=== PATIENT | female | born 1975 | race Asian ===

== ENCOUNTER 2017-12-07 08:00 | Inpatient (IN) ==
[2017-12-07] MEDS ORDERED: Famotidine 20 MG/2 ML VIAL IVP PRN (08:39)
[2017-12-07] MEDS ORDERED: Metoclopramide 10 MG/2 ML VIAL IVP PRN (08:39)
[2017-12-07] MEDS ORDERED: Naloxone 0.4 MG/ML INJ IVP PRN (08:39)
[2017-12-07] MEDS ORDERED: Lidocaine 1% 20 ML MDV INFILT PRN (08:39)
[2017-12-07] MEDS ORDERED: Ondansetron 4 MG/2 ML VIAL IVP PRN (08:39)
[2017-12-07 09:24] LABS: Basophils # 0.1 K/mcL (0.0-0.2); Basophils % 0.8 %; Eosinophils # 0.1 K/mcL (0.0-0.6); Eosinophils % 0.9 %; Hematocrit 36.9 % (35.3-44.9); Hemoglobin 12.1 g/dL (11.5-15.4); Immature Granulocytes % 4.1 % (0-4); Lymphocytes # 1.6 K/mcL (0.6-4.6); Mean Corpuscular HGB Conc 32.8 g/dL (31.6-35.5); Mean Corpuscular Hemoglobin 28.7 pg (28.0-33.3); Mean Corpuscular Volume 87.4 fL (83.0-100.0); Mean Platelet Volume 10.1 fL (9.4-12.4); Monocytes # 0.7 K/mcL (0.0-1.3); Monocytes % 8.8 %; Platelet Count 265 K/mcL (140-400); Red Blood Count 4.22 M/mcL (3.82-4.97); Red Cell Distribution Width 15.4 % (11.5-14.5); Segmented Neutrophils % 64.4 %
[2017-12-07 09:49] LABS: Amphetamine Screen,Urine Negative ng/mL (Cutoff=1000); Barbiturate Screen,Urine Negative ng/mL (Cutoff=200); Benzodiazepines Screen,Urine Negative ng/mL (Cutoff=200); Cannabinoid Screen,Urine Negative ng/mL (Cutoff = 50); Cocaine Screen,Urine Negative ng/mL (Cutoff= 300); Opiate Screen,Urine Negative ng/mL (Cutoff=300); Phencyclidine Screen,Urine Negative ng/mL (Cutoff=25)
--- NOTE | 2017-12-07 10:29 | OB/GYN History & Physical ---
Date of Encounter: 12/07/17 Time of Encounter: 10:23 Assessment and Plan (1) 39 weeks gestation of Current visit: Yes Status: Acute Intrauterine Elective induction Rh+ GBS- Admit to L&D for elective IOL Labs per usual Batista bulb and cytotec CEFM Pain management - epidural Anticipate Dr. Sage aware of POC and agrees and is available as needed. (2) Advanced maternal age in multigravida Current visit: Yes Status: Acute Qualifiers: Trimester: third trimester Qualified Code(s): O09.523 - Supervision of elderly multigravida, third trimester (3) Gestational diabetes mellitus (GDM) affecting seventh Current visit: Yes Status: Acute (4) Encounter for elective induction of labor Current visit: Yes Status: Acute History of Present Illness Chief complaint: elective IOL HPI: Ms. Ashley is a 42 year old Prydeinig female with an estimated date of of 12/11/17 at 39 weeks and 3 days gestation dated by early ultrasound. She presents for elective induction of labor. She denies contractions, RIO last , vaginal bleeding and reports positive movement. Her course has been complicated by advanced maternal age and gestational diabetes controlled with metformin. She received care from primarily Dr. Sage. records are available in her chart and have been reviewed. Labs: A+ GBS- HIV- Hep B- T. Palladium- Rubella immune Varicella immune Past Med Surg Social Fam HX - Past Medical History Psychiatric history: no psych history - Past Surgical History Surgical History: no surgical history - Social History Smoking Status: Former smoker Smokeless Tobacco Status: No Alcohol use: none Drug use: none - Family History Father Name: Luis Miguel Johnson Living Status: Still Living Hx Family Cardiac Disorders: No Hx Family Respiratory Disorders: No Hx Family Cancer: No Hx Family GI Disorders: No Hx Family Genitourinary Disorders: No Hx Family Endocrine Disorder: Yes (diabetes) Hx Family Musculoskeletal Disorders: No Hx Family Neuromuscular Disorders: No Hx Family Neurologic Disorders: No Hx Family HEENT Disorders: No Hx Family Autoimmune Disorders: No Hx Family Reproductive Disorders: No Hx Family Psychosocial Disorders: No Hx Family Medical Disorders: No Obstetrical History - Pregnancies : 7 Para: 4 Term: 4 (# 1: 1997, ; # 3 2005, ; # 4: 2010, ; # 5: 2013, ) : 0 Ab's: 2 (# 2: 2000 mab; # 6 2016 mab) Livin Review of System OB All systems PM: reviewed and no additional remarkable complaints except as stated Exam - Constitutional Constitutional: well developed, well nourished, no acute distress, average body habitus - HEENT HEENT: PERRL - Neck Neck exam: full ROM - Lungs Respiratory exam: CTAB - Cardiovascular Cardiovascular exam: RRR, +S1, +S2 - Breasts Breast: bilateral: normal - Abdomen Abdomen: Present: bowel sounds normal, gravid, non tender - Extremities Extremities exam: normal inspection, radial pulses palpable and symmetrical - Vulva Vulva: bilateral: normal - Vagina Vagina: Present: normal moisture - Cervix Dilation: 3 Effacement: 30 Station: -2 - Uterus Uterus exam: Present: normal size, normal contour - Anus/Rectum Anus/Rectum: Present: normal perianal skin Results Result Diagrams: 12/07/17 08:43 Abnormal lab results RDW 15.4 % (11.5-14.5) H 12/07/17 08:43 Immature Gran % 4.1 % (0-4) H 12/07/17 08:43 All other labs normal. - VTE Reasons for not Prescribing Prophylaxis: Treatment not Indicated - Low risk for VTE
[2017-12-07] MEDS ORDERED: miSOPROStol 100 MCG TABLET PO ONE (10:47)
--- NOTE | 2017-12-07 12:43 | OB Labor Progress Note ---
Date of Encounter: 12/07/17 Time of Encounter: 12:41 Labor Progress Note - Subjective Subjective: Pt reports feeling more contractions after PO cytotec administration. - Cervix Cervix: 2-3/40/-3 - Heart Tones Heart Tones: Baseline 125 Moderate variability Accelerations present 15x15 No decelerations FHR Category I - [place]: Contractions q 2-3 minutes - Interventions Interventions: Lazcano balloon placed - Plan Plan: Continue expectant management Pull on lazcano catheter per usual timing Anticipate
[2017-12-07] MEDS ORDERED: Oxytocin 20 units/ LR 1000 mL 20 UNIT/1,000 ML BAG IVC SCH (17:00)
[2017-12-07] MEDS ORDERED: Oxytocin 20 units/ LR 1000 mL 20 UNIT/1,000 ML BAG IVC ONE (17:01)
[2017-12-07] MEDS: Ringers Solution, Lactated 1,000 ML IVC SCH ×2 (17:16→21:02)
--- NOTE | 2017-12-07 17:18 | Anesthesia Evaluation PreOp ---
Date of Encounter: 12/07/17 Time of Encounter: 17:16 - Past History Planned Operation: TALA Cardiac History: Denies any Significant Hx Pulmonary History: Denies Any Significant HX HELMET HAT SWEATBAND PUNCHER History: Denies Any Significant HX Other Medical History: Diabetes Type II (gestational), GERD Anesthesia History: No Prior Anesthetic Complications, Past Anesthesia (D&C, TALA ) : Yes Test: Positive Alcohol Use: none Drug use: none Medications and Allergies 3 Allergy/AdvReac Type Severity Reaction Status Date / Time Unable to Assess Allergy Unverified 12/07/17 17:14 - Meds/Allergy Pre-op Review Medications Reviewed: Yes Allergies Reviewed: Yes Beta Blockers on Current Med List: No Anesthesia Results - Labs 12/07/17 08:43 Anesthesia Exam 111/66 77 fht 123 Height: 5'2" Weight: 75 kg NPO (# of Hours): 2 Pain Scale: 3 Pain Scale Used: Numeric (1 - 10) - HEENT Pupil (Motor): Pupils equal Mallampati: II Teeth: Normal Oral Opening: Greater than 3 - HELMET HAT SWEATBAND PUNCHER LOC: Oriented HELMET HAT SWEATBAND PUNCHER Motor: Normal RUE, Normal LUE, Normal RLE, Normal LLE, Normal Face HELMET HAT SWEATBAND PUNCHER Sensory: Normal: RUE, LUE, RLE, LLE, Face - Cardiac Rhythm: Regular Murmur: None - Pulmonary Breath Sounds: bilateral Clear Respiratory Effort: Symmetrical Anesthesia Assess/Plan ASA Score: 2 Modified Daniel Scale for Level of Consciousness: Cooperative, oriented, and tranquil Anesthetic Plan: Regional Autologous Blood: No Monitoring Plan: Standard Monitors Recovery Plan: Other (risks discussed, questions answered, consented)
--- NOTE | 2017-12-07 17:43 | OB Labor Progress Note ---
Date of Encounter: 12/07/17 Time of Encounter: 17:41 Labor Progress Note - Subjective Subjective: Pt reports increasing discomfort with contractions. Not ready for epidural yet. - Cervix Cervix: 5/50/-2 - Heart Tones Heart Tones: Baseline 120 Minimal to moderate variability Accelerations present 15x15 No decelerations FHR Category II - [place]: Contractions q 3 minutes - Interventions Interventions: Batista bulb out Increase pitocin 2x2 - Plan Plan: Continue expectant management Frequent position changes May have epidural upon request Anticipate Dr. Sage aware of POC and agrees.
[2017-12-07] MEDS ORDERED: *HR* FentaNYL (PF) 100 MCG/2 ML VIAL EP ONE (20:07)
[2017-12-07] MEDS ORDERED: *HR* FentaNYL (PF) 100 MCG/2 ML VIAL ONE (20:09)
[2017-12-07] MEDS ORDERED: Epidural Premix (fent/bupiv) 110 ML EP SCH (20:15)
[2017-12-07] MEDS ORDERED: Epidural Premix (fent/bupiv) 110 ML EP ONE (20:29)
--- NOTE | 2017-12-07 20:35 | Anesthesia Procedures ---
Date of Encounter: 12/07/17 Time of Encounter: 20:33 Procedures: Anesthesia - Epidural/Spinal Patient ID/Chart reviewed: Yes Patient examined: Yes OB Eval: Gestational age: 39 OB Eval: : 7 OB Eval: Hx Para: 4 OB Eval: Dilated at (cm): 5 OB Eval: Contractions: Non-stressed pattern Consent Obtained: Yes Supplemental Oxygen: None/Room Air Site Prep: Aseptic Technique, Sterile prep and drape, 0.5% Chlorhexidine/Alcohol Patient position: upright Local Anesthetic: Lidocaine 1% Touhy Needle Gauge: 18 Touhy Needle Depth (cm): 7 Catheter Depth at Skin (cm): 15 Test Dose (1.5% Lido + Epi): Volume given (mls): 3 Test Dose Result: Negative Loading Dose: Fentanyl (mcg): 100 Loading Dose: Other: rop 0.2% 10cc Loading Dose Administered: Thru Touhy Needle Infusion Med: 0.125% Bupivacaine w/ 2 mcg/ml Fentanyl Infusion Rate (mls/hr): 14 (pcea 5 cc q30") Catheter Secured in Place: Tegaderm Interspace Used: L2-L3 Loss of Resistance (LESTER): Yes Blood: No CSF: No Paresthesia: No Procedure: aseptic, tolerated well, VSS, effective Vitals + FHT's: 122/70 88 fht 143
--- NOTE | 2017-12-07 21:21 | OB Labor Progress Note ---
Date of Encounter: 12/07/17 Time of Encounter: 21:16 Labor Progress Note - Subjective Subjective: Pt comfortable with epidural. - Cervix Cervix: 6/70/-1 - Heart Tones Heart Tones: Baseline 125 Moderate variability Accelerations 15x15 Few variables FHR Category I - [place]: Contractions q 3-4 minutes - Interventions Interventions: AROM clear and IUPC placed - Plan Plan: Continue expectant management Frequent position changes with peanut ball Increase pitocin per policy Anticipate Dr. Sage aware of poc and agrees
[2017-12-07] MEDS ORDERED: 0.9 % Sodium Chloride 1,000 ML ONE (21:40)
[2017-12-07] MEDS ORDERED: Methylergonovine 0.2 MG/ML AMPUL IM ONE (23:23)
--- NOTE | 2017-12-07 23:39 | OB/GYN Procedure Note ---
Delivery - Delivery Date: 12/07/17 Provider: Carmen Bryson (Dr. Sage) Intrapartum events: none Delivery induction: lazcano, misoprostol Delivery augmentation: rupture of membranes, pitocin Delivery monitor: external FHT, external uterine, internal FHT, internal uterine Anesthesia: epidural Estimated Blood Loss: 400 - Infant (s) A Delivery Date: 12/07/17 Delivery Time: 23:07 Presentation: vertex Position: RIO Route of delivery: Gender: Female Viability: Viable Pounds: 7 Ounces: 6 Weight Gram: 3.355 kg at 1 minute: 9 at 5 mins: 9 Shoulder Dystocia: not encountered Specimens collected: cord blood Placenta: spontaneous Cord: nuchal cord, 3 umbilical vessels, delivered through nuchal - Repair Episiotomy: none Laceration Description: None - Complications Delivery complications: none Delivery comments: Ms. Ashley is a G7 now [id number] who was admitted for elective IOL. She progressed with lazcano bulb, misoprostol, pitocin, and AROM augmentation to the second stage of labor. She pushed for about 10 minutes. Under maternal effort, she delivered a 7lbs 6 oz (3355g) viable, female infant, TABATHA over an intact perineum. The mouth and nares were suctioned on the maternal abdomen. A loose nuchal cord x 1 was identified and the was delivered through it. No shoulder dystocia was encountered. Apgars were 9 at 1 minute and 9 at 5 minutes. The placenta delivered 12 minutes after spontaneously, intact, with a 3 vessel cord. Inspection revealed no perineal, sidewall, or cervical lacerations. The uterus was firm with no active bleeding. EBL was 400mL. Placenta and umbilical artery gases were not sent. There were no complications during the procedure. Mom and are [id number] following delivery. Dr. Sage was present for the entire delivery. - Disposition Mom disposition: stable in LDR [place] disposition: stable in LDR - Comments Comments: Per [facility] and [place] [employer]IPMENT [employer]CH[employer]IC protocol, I personally proctored this delivery and was there for the entire second stage and third stage. Delivery note of CNM was reviewed and I agree with its content.
[2017-12-08] MEDS ORDERED: Oxytocin 20 units/ LR 1000 mL 20 UNIT/1,000 ML BAG IVC SCH (02:28)
[2017-12-08] MEDS ORDERED: Acetaminophen 325 MG TABLET PO PRN (02:28)
[2017-12-08] MEDS ORDERED: Ibuprofen 600 MG TABLET PO PRN (02:28)
[2017-12-08 04:33] LABS: Basophils % 0.3 %; Eosinophils % 0.2 %; Hematocrit 31.1 % (35.3-44.9); Immature Granulocytes % 1.3 % (0-4); Lymphocytes # 1.8 K/mcL (0.6-4.6); Lymphocytes % 13.2 %; Mean Corpuscular HGB Conc 32.8 g/dL (31.6-35.5); Mean Corpuscular Hemoglobin 29.1 pg (28.0-33.3); Mean Corpuscular Volume 88.6 fL (83.0-100.0); Mean Platelet Volume 9.8 fL (9.4-12.4); Monocytes # 0.8 K/mcL (0.0-1.3); Monocytes % 6.3 %; Neutrophils # 10.6 K/mcL (1.6-8.9); Platelet Count 223 K/mcL (140-400); Red Blood Count 3.51 M/mcL (3.82-4.97); Red Cell Distribution Width 15.3 % (11.5-14.5); Segmented Neutrophils % 78.7 %
[2017-12-08 04:34] LABS: Hemoglobin 10.2 g/dL (11.5-15.4)
[2017-12-08] MEDS: Prenatal Vit/FA 1 EACH TABLET PO SCH (09:30)
--- NOTE | 2017-12-08 09:41 | OB/GYN Progress Note ---
Date of Encounter: 12/08/17 Time of Encounter: 09:38 - Assessment and Plan (1) Vaginal delivery Current Visit: Yes Status: Acute S/P vaginal delivery day 1 Pain is well controlled lochia light and without clots VSS Breast feeding Discharge home tomorrow with infant. (2) Gestational diabetes mellitus (GDM) affecting seventh Current Visit: Yes Status: Acute Subjective - Subjective Patient reports: appetite normal, voiding normally, pain well controlled, ambulating normally [place]: doing well, nursing well Objective - Latest Vital Signs Latest vital signs: Vital Signs Temp Pulse Resp BP Pulse Ox 12/08/17 07:58 98.7 F 80 16 117/76 12/08/17 04:00 98.5 F 70 14 105/63 97 12/08/17 03:00 98.8 F 79 14 99/59 99 12/08/17 02:05 98.8 F 78 14 105/64 99 Intake and Output 12/07/17 12/08/17 12/08/17 23:59 07:59 15:59 Intake Total 1000 / 1000 1040 / 1040 360 / 360 Output Total 1250 / 1250 Balance 1000 / 1000 -210 / -210 360 / 360 Intake: IV Fluids 1000 / 1000 Lactated Ringers 1,000 ML @ 125 1000 / 1000 mls/hr IVC .Q8H NICOL Rx#: [id number] Oral 1040 / 1040 360 / 360 Output: Urine 1250 / 1250 Other: Meal Breakfast Percent of Meal Consumed 100% - Exam Lungs: bilateral: normal Chest: Normal S1, Normal S2 Extremities: Present: normal Abdomen: Present: normal appearance, soft. Absent: gravid, tenderness Uterus: Present: normal, firm Uterus Position: At Umbilicus, Midline - Labs Labs: Laboratory Results - last 24 hr 12/07/17 12/08/17 09:00 04:11 WBC 13.4 H D RBC 3.51 L Hgb 10.2 L D Hct 31.1 L MCV 88.6 MCH 29.1 MCHC 32.8 RDW 15.3 H Plt Count 223 MPV 9.8 Immature Gran % 1.3 Seg Neutrophils % 78.7 Lymphocytes % 13.2 Monocytes % 6.3 Eosinophils % 0.2 Basophils % 0.3 Neutrophils # 10.6 H Lymphocytes # 1.8 Monocytes # 0.8 Eosinophils # 0.0 Basophils # 0.0 Urine Opiates Screen Negative Ur Barbiturates Screen Negative Ur Phencyclidine Scrn Negative Ur Amphetamines Screen Negative U Benzodiazepines Scrn Negative Urine Cocaine Screen Negative U Marijuana (THC) Screen Negative
[2017-12-08] MEDS: *HR* Metformin 500 MG TABLET PO SCH (15:39)
[2017-12-09] MEDS: Prenatal Vit/FA 1 EACH TABLET PO SCH (08:21)
[2017-12-09] MEDS: *HR* Metformin 500 MG TABLET PO SCH (08:23)
[2017-12-09 08:29] VITALS: BP 126/82
--- NOTE | 2017-12-09 11:54 | Discharge Summary ---
Date of Encounter: 12/09/17 Time of Encounter: 11:52 - Discharge Diagnosis (1) Vaginal delivery Priority: Primary Status: Acute Comments: Meeting all milestone, pain well managed on po pain medication. , desires discharge. (2) anemia Priority: Secondary Status: Acute Comments: Will discharge home on iron. - Discharge Medications Prescriptions: Ibuprofen [Motrin] 600 mg PO Q6HR PRN #60 tablet PRN Reason: Cramping Docusate [Colace] 100 mg PO BID #60 capsule Ferrous Sulfate 325 mg PO DAILY #60 tablet metFORMIN [Glucophage] 500 mg PO DAILY #60 tablet Home Medications: Acetaminophen [Tylenol] 650 mg PO Q6HR PRN tablet 12/09/17 [Rx] Docusate [Colace] 100 mg PO BID #60 capsule 12/09/17 [Rx] Ferrous Sulfate 325 mg PO DAILY #60 tablet 12/09/17 [Rx] Ibuprofen [Motrin] 600 mg PO Q6HR PRN #60 tablet 12/09/17 [Rx] Vit/FA 1 each PO DAILY #0 tablet 12/09/17 [Rx] metFORMIN [Glucophage] 500 mg PO DAILY #60 tablet 12/09/17 [Rx] Allergies/Adverse Reactions: 3 Allergy/AdvReac Type Severity Reaction Status Date / Time Unable to Assess Allergy Unverified 12/07/17 17:14 Data Procedures and tests throughout hospitalization: Laboratory Tests 12/07/17 12/07/17 12/08/17 08:43 09:00 04:11 WBC 7.8 13.4 H D RBC 4.22 3.51 L Hgb 12.1 10.2 L D Hct 36.9 31.1 L MCV 87.4 88.6 MCH 28.7 29.1 MCHC 32.8 32.8 RDW 15.4 H 15.3 H Plt Count 265 223 MPV 10.1 9.8 Immature Gran % 4.1 H 1.3 Seg Neutrophils % 64.4 78.7 Lymphocytes % 21.0 13.2 Monocytes % 8.8 6.3 Eosinophils % 0.9 0.2 Basophils % 0.8 0.3 Neutrophils # 5.0 10.6 H Lymphocytes # 1.6 1.8 Monocytes # 0.7 0.8 Eosinophils # 0.1 0.0 Basophils # 0.1 0.0 POC Glucose Urine Opiates Screen Negative Ur Barbiturates Screen Negative Ur Phencyclidine Scrn Negative Ur Amphetamines Screen Negative U Benzodiazepines Scrn Negative Urine Cocaine Screen Negative U Marijuana (THC) Screen Negative 12/08/17 12/08/17 12/08/17 09:58 13:51 20:09 WBC RBC Hgb Hct MCV MCH MCHC RDW Plt Count MPV Immature Gran % Seg Neutrophils % Lymphocytes % Monocytes % Eosinophils % Basophils % Neutrophils # Lymphocytes # Monocytes # Eosinophils # Basophils # POC Glucose 138 H 154 H 129 H Urine Opiates Screen Ur Barbiturates Screen Ur Phencyclidine Scrn Ur Amphetamines Screen U Benzodiazepines Scrn Urine Cocaine Screen U Marijuana (THC) Screen 12/09/17 12/09/17 06:52 10:55 WBC RBC Hgb Hct MCV MCH MCHC RDW Plt Count MPV Immature Gran % Seg Neutrophils % Lymphocytes % Monocytes % Eosinophils % Basophils % Neutrophils # Lymphocytes # Monocytes # Eosinophils # Basophils # POC Glucose 88 91 Urine Opiates Screen Ur Barbiturates Screen Ur Phencyclidine Scrn Ur Amphetamines Screen U Benzodiazepines Scrn Urine Cocaine Screen U Marijuana (THC) Screen Labs on day of discharge: Labs from last 24 hours 12/09/17 12/09/17 12/08/17 10:55 06:52 20:09 POC Glucose 91 88 129 H 12/08/17 13:51 POC Glucose 154 H Date of admission: 12/07/17 08:08 Primary care physician: Jess Naranjo CNP Consults: 12/08/17 02:28 Consult to Telecommunications Field Technician [CONS] Routine Comment: Vaginal delivery, consult needed Discharging clinician: Alicia Alvarez Anticipated date of discharge: 12/09/17 - Patient Status Disposition: Home, Self-Care Condition: Good Functional capacity at discharge: independent ambulation Overall status at discharge: patient is back to baseline - Discharge Instructions Follow Up With: Jess Naranjo CNP [Primary Care Provider] - Justin Sage MD [Partnered Physician] - - Diet and Activity Activity: resume usual activities as tolerated Diet: regular diet Hospital Course Reason for admission: induction of labor, IUP at term Delivery: Episiotomy: none Laceration: none Other procedures: none complications: none Discharge diagnosis: IUP at term delivered baby: female Hospital course: Delivery - Delivery Date: 12/07/17 Provider: Carmen Bryson. Chu) Intrapartum events: none Delivery induction: lazcano, misoprostol Delivery augmentation: rupture of membranes, pitocin Delivery monitor: external FHT, external uterine, internal FHT, internal uterine Anesthesia: epidural Estimated Blood Loss: 400 - (s) A Delivery Date: 12/07/17 Delivery Time: 23:07 Presentation: vertex Position: RIO Route of delivery: Gender: Female Viability: Viable Pounds: 7 Ounces: 6 Weight Gram: 3.355 kg at 1 minute: 9 at 5 mins: 9 Shoulder Dystocia: not encountered Specimens collected: cord blood Placenta: spontaneous Cord: nuchal cord, 3 umbilical vessels, delivered through nuchal - Repair Episiotomy: none Laceration Description: None - Complications Delivery complications: none Delivery comments: Ms. Ashley is a G7 now [id number] who was admitted for elective IOL. She progressed with lazcano bulb, misoprostol, pitocin, and AROM augmentation to the second stage of labor. She pushed for about 10 minutes. Under maternal effort, she delivered a 7lbs 6 oz (3355g) viable, female infant, TABATHA over an intact perineum. The mouth and nares were suctioned on the maternal abdomen. A loose nuchal cord x 1 was identified and the was delivered through it. No shoulder dystocia was encountered. Apgars were 9 at 1 minute and 9 at 5 minutes. The placenta delivered 12 minutes after spontaneously, intact, with a 3 vessel cord. Inspection revealed no perineal, sidewall, or cervical lacerations. The uterus was firm with no active bleeding. EBL was 400mL. Placenta and umbilical artery gases were not sent. There were no complications during the procedure. Mom and infant are [id number] following delivery. Dr. Sage was present for the entire delivery. - Disposition Mom disposition: stable in PP and appropriate for discharge. Time Attestation: Total time spent providing and/or coordinating discharge services: Time Spent: Less than 30 minutes Exam - Constitutional Vitals: Temp Pulse Resp BP Pulse Ox 97.3 F L 71 16 126/82 97 12/09/17 08:27 12/09/17 08:27 12/09/17 08:27 12/09/17 08:27 12/09/17 08:27 General appearance IM: A&O X 3 - Respiratory Respiratory exam: Present: CTAB - Cardiovascular Cardiovascular exam IM: Present: RRR - GI/Abdominal GI/Abdominal exam IM: normal bowel sounds, soft - Uterine Tone: Firm Uterus Position: At Umbilicus - Extremities Exam Extremities exam IM: Present: normal capillary refill, normal inspection - Neurological Exam Neurological exam: normal gait, oriented X3, reflexes normal - Psychiatric Additional comments: Reports good mood.
== END 2017-12-09 13:55 | disposition home or self-care (01) | DRG 775 ==
LOC: 1NENULAB 08:08 → 1NENUOBS 12-08 02:05
PROVIDERS: ADMIT Obstetrics & Gynecology; ATTEND Obstetrics & Gynecology